=== PATIENT | female | born 1990 | race Caucasian/White ===

== ENCOUNTER 2019-07-24 12:33 | Emergency (ER) | payer SELFPAY ==
[2019-07-24 12:45] VITALS: BP 179/97; PULSE 105; RESP 20; TEMP 37.7; O2SAT 100
--- NOTE | 2019-07-24 13:37 | ED.URI ---
HPI - URI/Sore Throat General Chief Complaint: Upper Respiratory Infection Stated Complaint: Sore throat Time Seen by Provider: 07/24/19 13:38 Source: patient and RN notes reviewed Mode of arrival: ambulatory Limitations: no limitations History of Present Illness HPI Narrative: 29-year-old female who presents to [facility] with complaints of sore throat and right ear pain for the past 2 days. Patient states that she has had fevers, chills and sweats, has taken OTC cold and flu medication for her fevers and symptoms. Patient denies any shortness of breath or wheezing respirations even and non labored with SAO2 100% on room air. Patient states that her throat pain is sharp aggravated by swallowing rates pain constant 6/10, ear pain is aching rates pain 3/10. Patient reports flu vaccine 2019. MD elicited complaint: sore throat and other (Ear pain) Onset (ago): day(s) (2) Consistency: constant Severity: moderate Pain scale (0-10): 6 Able to tolerate fluids by mouth: Yes Exacerbating factors: swallowing Relieving factors: nothing Associated symptoms: fever, chills, sore throat and ear pain Treatments prior to arrival: other (cold and flu medication OTC) Related Data Allergies Allergy/AdvReac Type Severity Reaction Status Date / Time No Known Allergies Allergy Verified 07/24/19 12:58 Review of Systems Review of Systems: Narrative: CONSTITUTIONAL: Reports fever, chills, or sweats. EYES: Denies visual changes, redness, or discharge. ENT: Denies rhinorrhea, congestion, positive sore throat, right otalgia. CARDIOVASCULAR: Denies chest pain, palpitations, or edema. RESPIRATORY: Denies cough or dyspnea. GASTROINTESTINAL: Denies abdominal pain, nausea, vomiting, or diarrhea. GENITOURINARY: Denies dysuria or hematuria. SKIN: Denies rash or itching. MUSCULOSKELETAL: Denies back pain, joint pain, or myalgia. NEUROLOGIC: Denies headache, numbness, or weakness. PSYCHIATRIC: Denies anxiety or depression. All systems reviewed & are unremarkable except as noted in HPI and below PMFSH Past Medical History Medical History (Updated 07/27/19 @ 11:02 by Zeynep Roberson NP) Fracture of ankle, right, closed Surgical History Surgical History (Updated 07/24/19 @ 13:58 by Zeynep Roberson NP) History of cholecystectomy Previous section Social History Social History (Updated 07/27/19 @ 10:55 by Zeynep Roberson NP) Smoking status: Unknown if ever smoked Substance use: current Substance use type: marijuana Living arrangements: with family Gender identity (if verbalized by the patient): Female Comments At time of signature, agree with nursing past medical, surgical, social history. There is no relevant family history pertinent to the presenting complaint Exam Narrative: Exam Narrative: GENERAL: Well-appearing, well-nourished, and in no acute distress. HEAD: Normocephalic, atraumatic. EYES: PERRLA and EOMI. ENT: Nares clear, no rhinorrhea or epistaxis. Mucous membranes moist.TM's normal with good light reflex, throat red swollen painful swallowing with enlarged tonsils NECK: Supple.lymphadenopathy CHEST: Clear to auscultation. No respiratory distress.SAO2 100% on room air. HEART: Regular rate and rhythm. No murmur heard. Normal peripheral pulses. ABDOMEN: Soft, nontender, nondistended, normal active bowel sounds. EXTREMITIES: Normal range of motion. No edema. SKIN: Warm, dry, no rash. NEURO: No focal deficits. Alert and oriented x3. Course Vital Signs Vital signs: Vital Signs Temperature 37.7 C H 07/24/19 12:45 Pulse Rate 105 H 07/24/19 12:45 Respiratory Rate 07/24/19 12:45 Blood Pressure 179/97 H 07/24/19 12:45 Pulse Oximetry 100 07/24/19 12:45 Temperature 37.7 C H 07/24/19 12:45 Pulse Rate 105 H 07/24/19 12:45 Respiratory Rate 07/24/19 12:45 Blood Pressure 179/97 H 07/24/19 12:45 Pulse Oximetry 100 07/24/19 12:45 MDM - URI/Sore Throat Differential Diagnosis Di
== END 2019-07-24 14:23 | disposition home or self-care (01) ==
PROVIDERS: Emergency Provider Registered Nurse
DX: H92.01 Otalgia, right ear (principal); J03.90 Acute tonsillitis, unspecified
CPT/HCPCS: 87081; 87880; 99203; G0463

== ENCOUNTER 2021-10-04 08:38 | Emergency (ER) | payer SELFPAY ==
--- NOTE | 2021-10-04 08:39 | ED.URI ---
HPI - URI/Sore Throat General Chief Complaint: Upper Respiratory Infection Stated Complaint: sore throat Time Seen by Provider: 10/04/21 08:40 Source: patient and RN notes reviewed Mode of arrival: ambulatory Limitations: no limitations History of Present Illness HPI Narrative: Patient is a 31-year-old female who presents to the urgent care with complaints of a sore throat since yesterday. Patient states she also had some nausea without vomiting. Patient denies any known fevers. States that she did have exposure to strep at work. Patient has taken Tylenol for her symptoms. No other acute complaints. No acute distress noted. Patient aware of the plan of care. Some parts of this dictation were generated by voice recognition software and may contain typographical and/or grammatical inaccuracies. Related Data Allergies Allergy/AdvReac Type Severity Reaction Status Date / Time No Known Allergies Allergy Verified 07/24/19 12:58 Review of Systems Review of Systems: CONSTITUTIONAL: Denies fever, chills, or sweats. EYES: Denies visual changes, redness, or discharge. ENT: Denies rhinorrhea, congestion, otalgia. Reports of sore throat CARDIOVASCULAR: Denies chest pain, palpitations, or edema. RESPIRATORY: Denies cough or dyspnea. GASTROINTESTINAL: Denies abdominal pain, nausea, vomiting, or diarrhea. GENITOURINARY: Denies dysuria or hematuria. SKIN: Denies rash or itching. MUSCULOSKELETAL: Denies back pain, joint pain, or myalgia. NEUROLOGIC: Denies headache, numbness, or weakness. All other systems reviewed are negative, except as documented in HPI. [facility] Past Medical History Medical History (Updated 10/04/21 @ 09:01 by FREDDIE Calderon) Fracture of ankle, right, closed Surgical History Surgical History (Updated 07/24/19 @ 13:58 by Zeynep Roberson NP) History of cholecystectomy Previous section Social History Social History (Updated 07/27/19 @ 10:55 by Zeynep Roberson NP) Smoking status: Unknown if ever smoked Substance use: current Substance use type: marijuana Gender identity (if verbalized by the patient): Female Comments At the time of my signature, I reviewed and agree with the nursing past medical, surgical, social, and family history. There is no relevant family history pertinent to the patient complaint. Exam Narrative: GENERAL: This is a well-nourished, well-developed patient, in no apparent distress. HEAD: normocephalic, atraumatic. EYES: PERRL. Sclera clear/white. Vision is grossly intact. EARS: External ears normal, auditory canals clear and without drainage, TMs normal without perforation. Hearing grossly intact. NOSE: External nose normal with no obvious nasal discharge, nares without redness, no rhinorrhea. THROAT: Mucous membranes moist. Mild erythema noted posterior oropharynx with mild bilateral tonsillar edema without exudate. Moderate postnasal drainage NECK: Neck supple CARDIOVASCULAR: Regular rate and rhythm without murmurs, gallops, or rubs. RESPIRATORY: Clear to auscultation. Breath sounds equal bilaterally. No wheezes, rales, or rhonchi. SKIN: warm, intact with no suspicious lesions or rash, good texture and turgor. NEURO: awake, alert, and oriented to person, place and time. There were no obvious focal neurologic abnormalities. EXTREMITIES: No clubbing, cyanosis, or edema. Course Course Level of Care: Express Care Visit Vital Signs Vital signs: Vital Signs Temperature 98.5 F 10/04/21 08:48 Pulse Rate 84 10/04/21 08:48 Respiratory Rate 16 10/04/21 08:48 Blood Pressure 185/155 H 10/04/21 08:48 Pulse Oximetry 100 10/04/21 08:48 Oxygen Delivery Room Air 10/04/21 08:48 Temperature 98.5 F 10/04/21 08:48 Pulse Rate 84 10/04/21 08:48 Respiratory Rate 16 10/04/21 08:48 Blood Pressure 185/155 H 10/04/21 08:48 Pulse Oximetry 100 10/04/21 08:48 Oxygen Delivery Room Air 10/04/21 08:48 Reviewed-patient is informed
[2021-10-04 08:48] VITALS: BP 185/155; PULSE 84; RESP 16; TEMP 36.9; O2SAT 100
[2021-10-04 09:00] VITALS: BP 168/104
== END 2021-10-04 09:08 | disposition home or self-care (01) ==
PROVIDERS: Emergency Provider Nurse Practitioner Family
DX: J02.9 Acute pharyngitis, unspecified (principal); F12.90 Cannabis use, unspecified, uncomplicated
CPT/HCPCS: 87081; 87880; 99213; G0463

== ENCOUNTER 2023-06-28 12:35 | Emergency (ER) | payer SELFPAY ==
[2023-06-28 12:41] VITALS: BP 172/105; PULSE 92; RESP 16; TEMP 36.5; O2SAT 99
--- NOTE | 2023-06-28 13:10 | ED.URI ---
HPI - URI/Sore Throat General Chief Complaint: Upper Respiratory Infection Stated Complaint: cough/congestion/aches/chills Time Seen by Provider: 06/28/23 13:10 Source: patient, RN notes reviewed and old records reviewed Mode of arrival: ambulatory Limitations: no limitations History of Present Illness HPI Narrative: 33-year-old female presents to [facility] Care with complaints of coughing with congestion for one week duration and 2 day history of body aches. Patient reports that she had been taking DayQuil,NyQuil, Tylenol and ibuprofen for symptoms has not take any the last couple days because it had not been helping her. Patient reports no sore throat or recent fevers. MD elicited complaint: cough, rhinorrhea, nasal congestion and other (body aches) Onset (ago): week(s) (1 ) Pain scale (0-10): 5 Able to tolerate fluids by mouth: Yes Treatments prior to arrival: other (none for 2 days had taken DayQuil,NyQuil,Tylenol and Ibuprofen) Related Data Home Medications Medication Instructions Recorded Confirmed No Home Medications 06/28/23 06/28/23 Allergies Allergy/AdvReac Type Severity Reaction Status Date / Time No Known Allergies Allergy Verified 07/24/19 12:58 Review of Systems Review of Systems: CONSTITUTIONAL: Reports malaise, no chills, sweats, or fever. EYES: Denies visual changes, redness, or discharge. ENT: Reports rhinorrhea, congestion, sinus pain, no otalgia and no sore throat. CARDIOVASCULAR: Denies chest pain, palpitations, or edema. RESPIRATORY: Reports cough.? Denies dyspnea. GASTROINTESTINAL: Denies abdominal pain, nausea, vomiting, diarrhea SKIN: Denies rash or itching. MUSCULOSKELETAL: Reports myalgia. NEUROLOGIC: Denies headache. All systems reviewed & are unremarkable except as noted in HPI and below PMFSH Past Medical History Medical History (Updated 06/29/23 @ 00:01 by Vel Fox) Fracture of ankle, right, closed Surgical History Surgical History (Updated 07/24/19 @ 13:58 by Zeynep Roberson NP) History of cholecystectomy Previous section Social History Social History (Updated 07/27/19 @ 10:55 by Zeynep Roberson NP) Smoking status: Unknown if ever smoked Substance use: current Substance use type: marijuana Living arrangements: with family Gender identity (if verbalized by the patient): Female Comments At time of signature, agree with nursing past medical, surgical, social and family history. There is no relevant family history pertinent to the presenting complaint Exam Narrative: GENERAL: Well-appearing, well-nourished, and in no acute distress. HEAD: Normocephalic EYES: PERRLA, conjunctivae clear ENT: Nares clear, turbinates edematous and erythematous, clear to light yellow discharge. Mucous membranes moist. TM pearly melendez with dull light reflex bilaterally; no tragal tenderness. Oropharynx erythematous without lesions. Tonsils not enlarged and without exudate, no drooling, no hoarseness, no trismus, uvula midline.post nasal discharge NECK: Supple. No lymphadenopathy CHEST: Clear to auscultation, breath sounds equal. No wheezing, rhonchi, rales, or stridor. No respiratory distress, speaks in full sentences.cough noted with SAO2 99% on room air HEART: Regular rate and rhythm. No murmur heard. SKIN: Warm, dry, no rash. NEURO: Alert and oriented x3. PSYCH: Normal mood and affect Course Course Emergency Course: Patient is aware of diagnosis, understands and agrees to treatment plan.? Anticipatory guidance given.? Patient agrees to follow-up as directed and is aware of reasons to seek care at the emergency department. Portions of this record may have been created with voice recognition software Level of Care: Express Care Visit Vital Signs Vital signs: Vital Signs Temperature 36.5 C 06/28/23 12:41 Pulse Rate 92 06/28/23 12:41 Respiratory Rate 16 06/28/23 12:41 Blood Pressure 172/105 H
== END 2023-06-28 13:32 | disposition home or self-care (01) ==
PROVIDERS: Emergency Provider Registered Nurse
DX: J10.1 Influenza due to other identified influenza virus with other respiratory manifestations (principal); Z20.822 Contact with and (suspected) exposure to COVID-19; F12.90 Cannabis use, unspecified, uncomplicated
CPT/HCPCS: 87426; 87804; 99213; G0463